=== PATIENT | female | born 1965 | race Caucasian/White ===

== ENCOUNTER 2021-12-08 11:47 | Emergency (ER) | payer BC ==
[~2021-12-08] VITALS: Ht 157.5 cm; Wt 63.5 kg
[2021-12-08 11:59] VITALS: BP 142/102
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
--- NOTE | 2021-12-08 12:02 | NUR ---
PT SEEN BY SOHAM NUNN
[2021-12-08] MEDS ORDERED: IBUPROFEN 600 MG TABLET PO ONE (13:30)
[2021-12-08] MEDS ORDERED: IBUP-1955 PO (13:33)
--- NOTE | 2021-12-08 13:57 | NUR ---
Patient discharged to home in stable condition. Written and verbal after care instructions given. Patient verbalizes understanding of instruction.
== END 2021-12-08 13:58 | disposition home or self-care (01) ==
LOC: ER 11:49
DX: S16.1XXA Strain of muscle, fascia and tendon at neck level, initial encounter (principal); S49.81XA Other specified injuries of right shoulder and upper arm, initial encounter; V49.69XA Unspecified car occupant injured in collision with other motor vehicles in traffic accident, initial encounter; Y93.89 Activity, other specified; Y92.413 State road as the place of occurrence of the external cause; Y99.8 Other external cause status
CPT/HCPCS: 72125-TC; 73030-TC

== ENCOUNTER 2022-01-13 14:05 | Emergency (ER) | payer BC ==
[~2022-01-13] VITALS: Ht 157.5 cm; Wt 63.5 kg
[~2022-01-13 14:05] MED LIST: IBUP-1955 PO
[2022-01-13 14:10] VITALS: BP 126/78
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
[2022-01-13] MEDS ORDERED: BACITRACIN ZINC OINT PACKET 1 EA PACKET TP ONE (14:30)
[2022-01-13] MEDS ORDERED: TDAP [DIPH/PERTUSSIS/TET] 0.5 ML VIAL IM ONE ×2 (14:30→14:42)
[2022-01-13] MEDS ORDERED: AMOX-430 PO ×2 (14:46→14:57)
[2022-01-13] MEDS ORDERED: IBUP-1955 PO (14:57)
--- NOTE | 2022-01-13 14:59 | NUR ---
Patient discharged to home in stable condition. Written and verbal after care instructions given. Patient verbalizes understanding of instruction.
== END 2022-01-13 15:00 | disposition home or self-care (01) ==
LOC: ER 14:10
DX: S60.411A Abrasion of left index finger, initial encounter (principal); I10 Essential (primary) hypertension; W53.21XA Bitten by squirrel, initial encounter; Y93.89 Activity, other specified; Y92.89 Other specified places as the place of occurrence of the external cause; Y99.8 Other external cause status
CPT/HCPCS: 90715

== ENCOUNTER → 2022-04-19 | Emergency (ER) | payer BC, MEDICAID ==
[~2022-04-19] VITALS: Ht 157.5 cm; Wt 61.2 kg
[~2022-04-19] MED LIST changes: +AMOX-430 PO; +DIAZEPAM 5 MG/ML 2 ML DISP.SYRIN ONE; +IV NS 0.9% 1,000 ML BAG IV ONE
[2022-04-19] MEDS: DIAZEPAM 5 MG/ML 2 ML DISP.SYRIN IV ONE ×2 (14:49→15:20)
[2022-04-19 15:00] LABS: BASOPHILS % (AUTO) 0.6 % (0.0-2.0); EOSINOPHILS % (AUTO) 1.8 % (0.0-6.0); HEMATOCRIT 39 % (33-45); HEMOGLOBIN 12.8 g/dL (11.5-14.8); LYMPHOCYTES # (AUTO) 2.3 K/uL (0.8-4.8); LYMPHOCYTES % (AUTO) 37.5 % (20.0-44.0); MEAN CORPUSCULAR HGB CONC 33 g/dl (31.0-36.0); MEAN CORPUSCULAR VOLUME 78 fL (82-100); MONOCYTES # (AUTO) 0.4 K/uL (0.1-1.30); MONOCYTES % (AUTO) 6.1 % (2.0-12.0); NEUTROPHILS # (AUTO) 3.2 K/uL (1.8-8.9); PLATELET COUNT (AUTO) 296 K/uL (150-450)
[2022-04-19 15:08] LABS: CALCIUM, SERUM 9.4 mg/dL (8.5-10.1); CREATININE 0.7 mg/dL (0.6-1.3)
--- NOTE | 2022-04-19 15:20 | NUR ---
pt refused Valium, per pt she drove to the hospital and does not have someone to pick her up.pt refused med.
--- NOTE | 2022-04-19 15:31 | NUR ---
per pharmacy is ok to return valium since packaging is open.but medication is intact.
[2022-04-19 17:17] VITALS: BP 132/86
--- NOTE | 2022-04-19 17:17 | NUR ---
Patient discharged to home in stable condition. Written and verbal after care instructions given. Patient verbalizes understanding of instruction.IV removed. Catheter intact and site benign. Pressure and 4x4 applied to site. No bleeding noted.
== END | disposition home or self-care (01) ==
LOC: ER 14:10
DX: R42 Dizziness and giddiness (principal); I10 Essential (primary) hypertension; Z79.899 Other long term (current) drug therapy
CPT/HCPCS: 36415; 70450; 71045; 80048; 82962; 85025; 93005; 96360; 99285; J7030; J3360

== ENCOUNTER 2022-05-18 22:08 | Emergency (ER) | payer MEDICAID ==
[~2022-05-18] VITALS: Ht 175.3 cm; Wt 79.4 kg
[~2022-05-18 22:08] MED LIST changes: -DIAZEPAM 5 MG/ML 2 ML DISP.SYRIN ONE; -IV NS 0.9% 1,000 ML BAG IV ONE
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
[2022-05-19 00:54] LABS: BASOPHILS % (AUTO) 0.7 % (0.0-2.0); EOSINOPHILS % (AUTO) 2.7 % (0.0-6.0); HEMATOCRIT 35 % (33-45); HEMOGLOBIN 11.4 g/dL (11.5-14.8); LYMPHOCYTES # (AUTO) 2.9 K/uL (0.8-4.8); LYMPHOCYTES % (AUTO) 43.6 % (20.0-44.0); MEAN CORPUSCULAR HGB CONC 32 g/dl (31.0-36.0); MEAN CORPUSCULAR VOLUME 77 fL (82-100); MONOCYTES # (AUTO) 0.5 K/uL (0.1-1.30); MONOCYTES % (AUTO) 8.2 % (2.0-12.0); NEUTROPHILS # (AUTO) 2.9 K/uL (1.8-8.9); NEUTROPHILS % (AUTO) 44.8 % (43.0-81.0); PLATELET COUNT (AUTO) 252 K/uL (150-450); RED BLOOD CELL COUNT(AUTO) 4.56 MIL/uL (4.0-5.2); WHITE BLOOD COUNT (AUTO) 6.5 K/uL (4.3-11.0)
[2022-05-19 01:10] LABS: CALCIUM, SERUM 8.8 mg/dL (8.5-10.1); CARBON DIOXIDE 30 mmol/L (21-32); CHLORIDE 107 mmol/L (98-107); CREATININE 0.6 mg/dL (0.6-1.3); GLUCOSE 94 mg/dL (74-106); POTASSIUM 4.2 mmol/L (3.5-5.1); SODIUM SERUM 141 mmol/L (136-145); UREA NITROGEN, BLOOD 15 mg/dL (7-18)
[2022-05-19 01:21] LABS: ALANINE AMINOTRANSFERASE 26 U/L (12-78); ALBUMIN 3.8 g/dL (3.4-5.0); ALKALINE PHOSPHATASE 60 U/L (46-116); ASPARTATE AMINOTRANSFERASE 14 U/L (15-37); BILIRUBIN,DIRECT 0.1 mg/dL (0.0-0.2); BILIRUBIN,TOTAL 0.4 mg/dL (0.2-1.0); TOTAL PROTEIN, SERUM 7.1 g/dL (6.4-8.2)
--- NOTE | 2022-05-19 01:21 | NUR ---
REFUSED XRAY. AWARE.
[2022-05-19] MEDS ORDERED: IBUPROFEN 400 MG TABLET ONE (03:44)
--- NOTE | 2022-05-19 03:49 | NUR ---
Patient discharged to home in stable condition. Written and verbal after care instructions given. Patient verbalizes understanding of instruction.
[2022-05-19 03:50] VITALS: BP 153/78
[2022-05-19] MEDS ORDERED: IBUPROFEN 400 MG TABLET PO ONE (04:00)
== END 2022-05-19 03:50 | disposition home or self-care (01) ==
LOC: ER 22:10
DX: R60.0 Localized edema (principal); I10 Essential (primary) hypertension; Z79.899 Other long term (current) drug therapy
CPT/HCPCS: 36415; 80048-TC; 80076-TC; 83880; 84484-TC; 85025-TC; 85730-TC; 93970-TC

== ENCOUNTER 2023-02-08 15:29 | Emergency (ER) | payer MEDICAID ==
[~2023-02-08] VITALS: Ht 157.5 cm; Wt 68.0 kg
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
--- NOTE | 2023-02-08 16:10 | NUR ---
SEEN BY DR. SELF
--- NOTE | 2023-02-08 16:40 | NUR ---
INSERTED PRASANTH ALMANZAR G 20 ON LT AC BLOOD DROW AND SSENT TO LAB
[2023-02-08] MEDS ORDERED: diphenhydrAMINE HCL 50 MG/ML VIAL ONE (16:56)
[2023-02-08] MEDS ORDERED: PROCHLORPERAZINE EDISYLATE 10 MG/2 ML VIAL ONE (16:56)
[2023-02-08] MEDS ORDERED: PROCHLORPERAZINE EDISYLATE 10 MG/2 ML VIAL IVP ONE (17:00)
[2023-02-08] MEDS ORDERED: IV NS 0.9% 1,000 ML IV ONE (17:00)
[2023-02-08] MEDS ORDERED: diphenhydrAMINE HCL 50 MG/ML VIAL IV ONE (17:00)
--- NOTE | 2023-02-08 17:00 | NUR ---
UA SENT TO LAB
[2023-02-08 17:03] LABS: BILIRUBIN,URINE NEGATIVE (NEGATIVE); COLOR,URINE YELLOW (YELLOW); LEUKOCYTE ESTERASE ,URINE NEGATIVE (NEGATIVE); NITRITE, URINE NEGATIVE (NEGATIVE); PROTEIN,URINE NEGATIVE (NEGATIVE); UGLUCOSE NEGATIVE (NEGATIVE); UROBILINOGEN,URINE 0.2 EU/dL (0.2)
[2023-02-08 17:14] LABS: BASOPHILS % (AUTO) 0.8 % (0.0-2.0); EOSINOPHILS % (AUTO) 1.3 % (0.0-6.0); HEMATOCRIT 40 % (33-45); HEMOGLOBIN 12.6 g/dL (11.5-14.8); LYMPHOCYTES % (AUTO) 33.8 % (20.0-44.0); MEAN CORPUSCULAR HGB CONC 32 g/dl (31.0-36.0); MEAN CORPUSCULAR VOLUME 78 fL (82-100); MONOCYTES # (AUTO) 0.4 K/uL (0.1-1.30); MONOCYTES % (AUTO) 7.2 % (2.0-12.0); NEUTROPHILS # (AUTO) 3.4 K/uL (1.8-8.9); NEUTROPHILS % (AUTO) 56.9 % (43.0-81.0); PLATELET COUNT (AUTO) 293 K/uL (150-450); WHITE BLOOD COUNT (AUTO) 5.9 K/uL (4.3-11.0)
[2023-02-08 17:15] LABS: BACTERIA,URINE None seen /HPF (None Seen); SQUAMOUS EPITHELIAL CELL,UR 0-2 /HPF (None Seen); WBC,URINE 0-2 /HPF (0-3)
[2023-02-08 17:32] LABS: CALCIUM, SERUM 9.2 mg/dL (8.5-10.1); CREATININE 0.6 mg/dL (0.6-1.3); POTASSIUM 3.7 mmol/L (3.5-5.1)
[2023-02-08 17:38] LABS: ALBUMIN 4.4 g/dL (3.4-5.0); BILIRUBIN,DIRECT 0.1 mg/dL (0.0-0.2); BILIRUBIN,TOTAL 0.4 mg/dL (0.2-1.0); TOTAL PROTEIN, SERUM 8.3 g/dL (6.4-8.2)
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
--- NOTE | 2023-02-08 18:30 | NUR ---
DR. CHILO BROWN WITH PT ABOUT PLAN OF CARE
--- NOTE | 2023-02-08 19:05 | NUR ---
IV removed. Catheter intact and site benign. Pressure and 4x4 applied to site. No bleeding noted.
--- NOTE | 2023-02-08 19:08 | NUR ---
Patient discharged to home in stable condition. Written and verbal after care instructions given. Patient verbalizes understanding of instruction.
[2023-02-08 19:39] VITALS: BP 119/77
== END 2023-02-08 19:40 | disposition home or self-care (01) ==
LOC: ER 15:34
DX: G44.009 Cluster headache syndrome, unspecified, not intractable (principal); R10.9 Unspecified abdominal pain; I10 Essential (primary) hypertension
CPT/HCPCS: 99285; 96374; 96361; 96375; 85025; 80048; 80076; 81001; 36415; J0780; J1200; J7030